=== PATIENT | male | born 1970 | race Two or more races ===

== ENCOUNTER 2020-09-06 15:21 | Inpatient (IN) | payer OTHER ==
[~2020-09-06] VITALS: Ht 167.6 cm; Wt 77.1 kg
[2020-09-06] MEDS ORDERED: THIA100T88 PO (15:55)
[2020-09-06] MEDS ORDERED: ATOR10TA PO (15:55)
[2020-09-06] MEDS ORDERED: FOLI1TAB94 PO (15:55)
[2020-09-06] MEDS ORDERED: GABA-532 PO (15:55)
[2020-09-06] MEDS ORDERED: FLUO20CA42 PO (15:55)
[2020-09-06] MEDS ORDERED: LISI-782 PO (15:55)
[2020-09-06] MEDS ORDERED: GLIP5TAB13 PO (15:55)
[2020-09-06] MEDS ORDERED: FURO-152 PO (15:55)
[2020-09-06] MEDS ORDERED: SPIR25TA6 PO (15:55)
[2020-09-06] MEDS ORDERED: SODI1TAB3 PO (15:55)
[2020-09-06] MEDS ORDERED: FERR325T28 PO (15:55)
[2020-09-06] MEDS ORDERED: PROP20TA19 PO (15:55)
[2020-09-06] MEDS ORDERED: OMEP20CA16 PO (15:55)
[2020-09-06 16:00] LABS: CREATININE 1.2 mg/dL (0.6-1.3); HEMATOCRIT 26.7 % (36.7-47.1); MEAN CORPUSCULAR HEMOGLOBIN 35.9 uug (23.8-33.4); MEAN CORPUSCULAR VOLUME 106.3 fL (73.0-96.2); PLATELET COUNT (AUTO) 133 K/uL (152-348); POTASSIUM 3.8 mmol/L (3.5-5.1)
[2020-09-06 16:06] LABS: BILIRUBIN,DIRECT 1.6 mg/dL (0.0-0.2); BILIRUBIN,TOTAL 3.4 mg/dL (0.2-1.0); TOTAL PROTEIN, SERUM 6.9 g/dL (6.4-8.2)
--- NOTE | 2020-09-06 16:26 | NUR ---
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 Assisted to gown. All belongings bedside.Abdominal,right testical, lower extremitys edema +2, A,A, orented to place, person,purpose.Assit to use urinal x 2 with poor results. Rectal temp 101.8.Patient denies pain.Comfort measures x2.
[2020-09-06] MEDS ORDERED: METRONIDAZOLE 500 MG/NS 100ML 100 ML IV ONE ×2 (17:00→19:47)
[2020-09-06] MEDS ORDERED: CEFTRIAXONE 2 G in IV DEXTROSE 5% 50 ML IV ONE (17:00)
[2020-09-06] MEDS ORDERED: FUROSEMIDE 40 MG/4 ML VIAL IV ONE (18:00)
[2020-09-06 18:26] LABS: *BILIRUBIN,URIN 3+ (NEGATIVE); *BLOOD, URINE TRACE INTACT (NEGATIVE); *CLARITY,URINE SLIGHTLY CLOUDY (CLEAR); *COLOR,URINE DARK YELLOW (YELLOW); *KETONES,URINE 1+ (NEGATIVE); LEUKOCYTE ESTERASE ,URINE NEGATIVE (NEGATIVE); NITRITE, URINE NEGATIVE (NEGATIVE); PH,URINE 5.5 (5.0-8.0); UGLUCOSE NEGATIVE (NEGATIVE)
--- NOTE | 2020-09-06 18:45 | NUR ---
Output 4 liters serosangoues fluid from paracentesis, Right lower abd dressing with scant dried blood.Foly cath total for shift 100 cc clear sissy. A,A able to make needs known.Hygiene attended.
--- NOTE | 2020-09-06 19:08 | NUR ---
Received report from matthew Spain RN.
[2020-09-06 19:22] LABS: BACTERIA,URINE FEW /HPF (NONE SEEN); MUCUS,URINE FEW /LPF (0-FEW); SQUAMOUS EPITHELIAL CELL,UR FEW /HPF (NONE SEEN); URINE AMORPHOUS URATE FEW /HPF
[2020-09-06] MEDS ORDERED: FUROSEMIDE 40 MG/4 ML VIAL ONE (19:23)
[2020-09-06] MEDS ORDERED: CEFTRIAXONE /D5W 50ML IVPB **ER PYXIS IV ONE (19:25)
--- NOTE | 2020-09-06 21:14 | NUR ---
Gave report to Carmina DUMONT, [facility] going to room 329A.
--- NOTE | 2020-09-06 22:30 | NUR ---
RECEIVED PATIENT VIA GURNEY TO FLOOR. PATIENT IS PUI STATUS AT THIS TIME. TEMPERATURE STILL NOTED UPON ARRIVAL TO FLOOR 100.4, SLOWLY TRENDING DOWN FROM ER. ALL OTHER VS WNL. F/C INTACT AND DRAINING CLEAR, YELLOW URINE. HEPLOCK INTACT AND NOTED TO LEFT AC #[address] OUT TO [address] JARAMILLO FOR FURTHER ORDERS. ORIENTED PATIENT TO ROOM AND CALL LIGHT.
--- NOTE | 2020-09-06 22:30 | NUR ---
Pt. admitted to Med Surg room 320 , under care of Dr.Tim Shepherd Dx: fever, unknown etiology Belongs List completed
[2020-09-06 23:07] VITALS: BP 118/64
[2020-09-07] MEDS ORDERED: ONDANSETRON 4 MG/2 ML VIAL IV PRN
[2020-09-07] MEDS ORDERED: IV LACTATED RINGERS SOLUTION 1,000 ML IV PRN
[2020-09-07] MEDS ORDERED: LORAZEPAM 2 MG/1 ML VIAL IV PRN
[2020-09-07] MEDS ORDERED: Z GUARD REMEDY PASTE 57 GM TUBE TOP PRN
[2020-09-07] MEDS ORDERED: ACETAMINOPHEN 325 MG TABLET PO PRN
[2020-09-07] MEDS ORDERED: CEFTRIAXONE 2 G in IV DEXTROSE 5% 100 ML IV SCH ×2 (00:30→21:00)
[2020-09-07 04:35] VITALS: BP 107/55
[2020-09-07] MEDS ORDERED: glipiZIDE 5 MG TABLET PO SCH (07:30)
[2020-09-07 07:35] LABS: HEMATOCRIT 23.2 % (36.7-47.1); MEAN CORPUSCULAR HEMOGLOBIN 36.2 uug (23.8-33.4); MEAN CORPUSCULAR VOLUME 105.7 fL (73.0-96.2); PLATELET COUNT (AUTO) 73 K/uL (152-348)
[2020-09-07 07:49] LABS: BILIRUBIN,TOTAL 2.9 mg/dL (0.2-1.0); CREATININE 1.2 mg/dL (0.6-1.3); MAGNESIUM 1.6 mg/dL (1.8-2.4); PHOSPHOROUS 4.1 mg/dL (2.5-4.9); POTASSIUM 3.5 mmol/L (3.5-5.1); TOTAL PROTEIN, SERUM 5.7 g/dL (6.4-8.2)
[2020-09-07 08:03] VITALS: BP 110/55
[2020-09-07 08:31] LABS: THYROID STIMULATING HORMONE 1.871 mIU/mL (0.358-3.740)
[2020-09-07] MEDS ORDERED: SPIRONOLACTONE 25 MG TABLET PO SCH (09:00)
[2020-09-07] MEDS ORDERED: LISINOPRIL 5 MG TABLET PO SCH (09:00)
[2020-09-07] MEDS ORDERED: PANTOPRAZOLE SODIUM 40 MG VIAL IV SCH (09:00)
[2020-09-07] MEDS ORDERED: GABAPENTIN 100 MG CAPSULE PO SCH (09:00)
[2020-09-07] MEDS ORDERED: THIAMINE HCL 100 MG TABLET PO SCH (09:00)
[2020-09-07] MEDS ORDERED: FOLIC ACID 1 MG TABLET PO SCH (09:00)
[2020-09-07] MEDS ORDERED: PROPRANOLOL HCL 20 MG TABLET PO SCH (09:00)
[2020-09-07] MEDS ORDERED: FERROUS SULFATE 325 MG TABEC PO SCH (09:00)
[2020-09-07] MEDS ORDERED: FUROSEMIDE 20 MG TABLET PO SCH (09:00)
[2020-09-07] MEDS ORDERED: FLUOXETINE HCL 20 MG CAPSULE PO SCH (09:00)
--- NOTE | 2020-09-07 10:39 | NUR ---
pt removed his iv and leave ama .try to explain the pt all the contra indications can happened pt said he have to leave he have to take care off some business pt refused to sign and taking education papers pt left the facility via walking from the hospital in proper clothing .pt is axox4.
--- NOTE | 2020-09-07 10:40 | NUR ---
REGARDING PT LEAVING AMA NOTIFIED THE CHARGE NURSE AND NURSING STRAINER CLEANER AND MADE AWARE
[2020-09-07 14:12] LABS: EOSINOPHILS % (MANUAL) 2 % (0-8); LYMPHOCYTES % (MANUAL) 12 % (20-40); MONOCYTES % (MANUAL) 6 % (2-10); NEUTROPHILS % (MANUAL) 80 % (42-75)
[2020-09-07] MEDS ORDERED: ATORVASTATIN 10 MG TABLET PO SCH (21:00)
== END 2020-09-07 10:36 | disposition left against medical advice (07) | DRG 280 ==
LOC: ER 15:23 → MEDSURG3 21:55
PROVIDERS: ADMIT Nurse Practitioner Acute Care; ATTEND Nurse Practitioner Acute Care
PROC: 0W9G3ZX Drainage of Peritoneal Cavity, Percutaneous Approach, Diagnostic (ICD-10-PCS; principal; 2020-09-06)
DX: K70.31 Alcoholic cirrhosis of liver with ascites (principal); G92 Toxic encephalopathy; F10.129 Alcohol abuse with intoxication, unspecified; R50.9 Fever, unspecified; E11.9 Type 2 diabetes mellitus without complications; E78.5 Hyperlipidemia, unspecified; F17.210 Nicotine dependence, cigarettes, uncomplicated; Z79.84 Long term (current) use of oral hypoglycemic drugs; I10 Essential (primary) hypertension; Y90.8 Blood alcohol level of 240 mg/100 ml or more; Z20.822 Contact with and (suspected) exposure to COVID-19
CPT/HCPCS: 36415; 49083; 70030-TC; 71045; 83605; 83690; 83735; 83986; 84100; 84443; 85025; 85730; 87040; 87070; 87086; 87205; 93005; 97161; A4663; C9113; G0378; G0480; J0696; J1940; J3490; J7060; J7120; U0003